=== PATIENT | female | born 1970 | race Caucasian/White ===

== ENCOUNTER 2020-04-03 16:51 | Emergency (ER) | payer OTHER ==
[~2020-04-03] VITALS: Ht 154.9 cm; Wt 95.3 kg
[~2020-04-03 16:51] MED LIST: ATENOLOL25 GM; CYMBALTA60 MG; ESTRADIOL; ESTRADIOL0.5 MG; GILTUSS TR1 TAB.SR .; IMITREX50 MG; INVEGA SUS117 MG/0.7 IM; LEVOXYL75 MCG; TENORMIN25 MG; TOPAMAX50 MG; VAGIFEM25 MCG; ZOCOR20 MG; ZOCOR5 MG
[2020-04-03] MEDS ORDERED: PEPCID20 MG PO (22:56)
[2020-04-03] MEDS ORDERED: SKELAXIN800 MG PO (22:56)
[2020-04-03] MEDS ORDERED: NAPROXEN500 MG PO (22:56)
== END 2020-04-03 22:43 | disposition home or self-care (01) ==
LOC: ER 16:51
DX: M94.0 Chondrocostal junction syndrome [Tietze] (principal); R07.89 Other chest pain; M54.2 Cervicalgia; M62.838 Other muscle spasm; Z03.818 Encounter for observation for suspected exposure to other biological agents ruled out

== ENCOUNTER 2020-06-13 16:49 | Emergency (ER) | payer OTHER ==
[~2020-06-13] VITALS: Ht 154.9 cm; Wt 104.3 kg
[~2020-06-13 16:49] MED LIST changes: +NAPROXEN500 MG PO; +PEPCID20 MG PO; +SKELAXIN800 MG PO
[2020-06-13] MEDS ORDERED: LORAZEPAM2 MG PO (17:05)
[2020-06-13] MEDS ORDERED: ALPRAZOLAM2 MG PO (17:05)
[2020-06-13] MEDS ORDERED: CYMBALTA60 MG PO (17:06)
[2020-06-13] MEDS ORDERED: CYMBALTA30 MG PO (17:06)
[2020-06-13] MEDS ORDERED: TOPIRAMATE100 MG PO (17:06)
== END 2020-06-13 20:08 | disposition home or self-care (01) ==
LOC: ER 16:49
DX: R53.81 Other malaise (principal); T50.Z95A Adverse effect of other vaccines and biological substances, initial encounter

== ENCOUNTER 2021-04-19 07:22 | Outpatient (CLI) | payer OTHER ==
[~2021-04-19 07:22] MED LIST changes: +ALPRAZOLAM2 MG PO; +CYMBALTA30 MG PO; +CYMBALTA60 MG PO; +LORAZEPAM2 MG PO; +TOPIRAMATE100 MG PO
== END 2021-04-19 07:23 | disposition home or self-care (01) ==
LOC: LAB 07:22
PROVIDERS: ATTEND Psychiatry & Neurology Psychiatry
DX: E55.9 Vitamin D deficiency, unspecified (principal); E03.9 Hypothyroidism, unspecified; D51.9 Vitamin B12 deficiency anemia, unspecified; Z79.899 Other long term (current) drug therapy

== ENCOUNTER 2021-10-31 14:00 | Emergency (ER) | payer OTHER ==
[~2021-10-31] VITALS: Ht 154.9 cm; Wt 106.6 kg
[2021-10-31] MEDS ORDERED: ATIVAN1 M1 PO (14:16)
[2021-10-31] MEDS ORDERED: SYNTHROID112 MCG PO (14:16)
[2021-10-31] MEDS ORDERED: XANAX XR2 MG PO (14:17)
[2021-10-31] MEDS ORDERED: CANDESARTAN CILE8 MG PO (14:17)
[2021-10-31] MEDS ORDERED: CLARITIN10 M1 PO (14:18)
[2021-10-31] MEDS ORDERED: FLUCONAZOLE150 MG PO (17:51)
== END 2021-10-31 17:55 | disposition home or self-care (01) ==
LOC: ER 14:00
DX: B37.3 Candidiasis of vulva and vagina (principal); B37.0 Candidal stomatitis; E11.9 Type 2 diabetes mellitus without complications; I10 Essential (primary) hypertension

== ENCOUNTER 2022-02-24 16:33 | Emergency (ER) | payer OTHER ==
[~2022-02-24] VITALS: Ht 154.9 cm; Wt 106.6 kg
[~2022-02-24 16:33] MED LIST changes: +ATIVAN1 M1 PO; +CANDESARTAN CILE8 MG PO; +CLARITIN10 M1 PO; +FLUCONAZOLE150 MG PO; +SYNTHROID112 MCG PO; +XANAX XR2 MG PO
[2022-02-24] MEDS ORDERED: FENOFIBRATE145 MG PO (17:20)
== END 2022-02-24 21:19 | disposition home or self-care (01) ==
LOC: ER 16:33
DX: R20.0 Anesthesia of skin (principal); R07.9 Chest pain, unspecified